=== PATIENT | female | born 1965 | race Caucasian/White ===

== ENCOUNTER 2018-02-20 15:48 | Outpatient (CLI) | payer MEDICARE, BC ==
--- NOTE | 2018-02-20 18:04 | RAD ---
RIGHT SHOULDER THREE VIEWS: 02/20/18 No fracture, dislocation, or AC joint widening was seen. the visible bony structures appear intact. IMPRESSION: No acute findings. POS: HOME
--- NOTE | 2018-02-20 19:07 | RAD ---
RIGHT HAND THREE VIEWS: 02/20/18 No fracture or area of acute bony change was seen. There are minor degenerative changes in some of th e IP joints of the fingers. 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 A few cystic changes are seen in the trapezium which are prob ably not significant. The carpals basically appear intact. IMPRESSION: No acute traumatic change. Some longstanding changes listed per above. POS: HOME
--- NOTE | 2018-02-20 19:08 | RAD ---
RIGHT WRIST THREE VIEWS: 02/20/18 No fracture was seen. The carpal relations are normal. There is some periarticular osteoporosis as no stephanie on the hand films. No bony erosions are seen. IMPRESSION: Chronic changes but no acute findings. POS: HOME
--- NOTE | 2018-02-20 19:14 | RAD ---
SACRUM AND COCCYX 02/20/18 There is a very large amount of gas and fecal material over the sacrum. As the result, it is not seen well at all. No gross fracture was seen, nor was there gross change to the SI joints. Nevertheless, all but the largest of changes would be easily missed due to the overlapping structures. On the later al view, one does not see any fracture or acute coccygeal abnormality. IMPRESSION: Very limited study showing no gross findings, but overall sensitivity is quite low due to overlying g as and fecal material. POS: HOME
== END 2018-02-20 15:49 | disposition home or self-care (01) ==
LOC: BURRAD 15:48
PROVIDERS: ATTEND Family Medicine
DX: M79.89 Other specified soft tissue disorders (principal); M25.511 Pain in right shoulder; M53.3 Sacrococcygeal disorders, not elsewhere classified; M81.0 Age-related osteoporosis without current pathological fracture; Z91.81 History of falling
CPT/HCPCS: 72220